=== PATIENT | male | born 1950 | race Caucasian/White ===

== ENCOUNTER 2017-04-22 08:50 | Emergency (ER) | payer OTHER ==
[~2017-04-22] VITALS: Ht 182.9 cm; Wt 179.2 kg
[2017-04-22 09:02] VITALS: BP 165/96
== END 2017-04-22 09:53 | disposition home or self-care (01) ==
LOC: ER 08:55
DX: R04.0 Epistaxis (principal); R51 Headache; Z90.49 Acquired absence of other specified parts of digestive tract

== ENCOUNTER 2017-05-02 10:07 | Emergency (ER) | payer OTHER ==
[~2017-05-02] VITALS: Ht 182.9 cm; Wt 180.5 kg
[2017-05-02 15:28] VITALS: BP 133/85
[2017-05-02 16:33] LABS: Urine Bilirubin Negative (Negative); Urine Blood Negative /uL (Negative); Urine Color Yellow (Yellow); Urine Glucose Normal (Normal); Urine Ketone Negative (Negative); Urine Mucus FEW (None Seen); Urine Nitrite Negative (Negative); Urine RBC 1 /hpf (0 - 3); Urine Squamous Epithelial Cell FEW /hpf (<5); Urine Urobilinogen Normal (Negative); Urine pH 6.5 (5.0-8.0)
[2017-05-02 16:33] LABS: Basophils # (auto) 0 uL; Basophils % (auto) 0.3 % (0.0-2.0); CONDITION Y; Eosinophils # (auto) 0.1 uL; Eosinophils % (auto) 1.2 % (0.0-7.0); Hematocrit 46.7 % (41.0-53.0); Hemoglobin 15.8 g/dL (13.5-17.5); Lymphocytes # (auto) 3.8 uL; Lymphocytes % (auto) 31.9 % (10.0-50.0); Mean Corpuscular Hemoglobin 30.1 pg (28.0-32.0); Mean Corpuscular Hgb Conc. 33.7 g/dL (32.0-36.0); Mean Corpuscular Volume 89.3 fL (80.0-100.0); Mean Platelet Volume 7.9 fL (7.4-10.4); Monocytes # (auto) 0.6 uL; Neutrophils # (auto) 7.4 uL; Neutrophils % (auto) 61.6 % (37.0-80.0); Platelet Count (auto) 289 10^3/uL (140-450); Red Cell Distribution Width 15.1 % (11.6-16.0)
[2017-05-02 16:47] LABS: Albumin 3.8 g/dL (3.4-5.0); BUN/Creatinine Ratio 18.2; Calcium 8.7 mg/dL (8.5-10.1); Potassium 4.3 mmol/L (3.5-5.1)
[2017-05-02 16:48] LABS: INR 0.95 (0.9-1.15); Prothrombin Time 10.4 sec (9.37-12.3)
[2017-05-02 16:50] LABS: Bilirubin, Total 0.4 mg/dL (0.2-1.0)
== END 2017-05-02 17:53 | disposition home or self-care (01) ==
LOC: ER 10:20
DX: R04.0 Epistaxis (principal); G43.909 Migraine, unspecified, not intractable, without status migrainosus; Z79.82 Long term (current) use of aspirin
CPT/HCPCS: 36415; 80053; 81001; 85025; 85610; 85730

== ENCOUNTER 2017-09-12 16:05 | Inpatient (IN) | payer OTHER ==
[~2017-09-12] VITALS: Ht 177.8 cm; Wt 171.0 kg
[2017-09-12] MEDS ORDERED: SODIUM CHLORIDE 0.9% 1,000 ML IV ONE (17:05)
[2017-09-12 17:46] LABS: Basophils # (auto) 0.1 uL; Basophils % (auto) 0.6 % (0.0-2.0); Eosinophils # (auto) 0.1 uL; Eosinophils % (auto) 0.7 % (0.0-7.0); Hematocrit 45.7 % (41.0-53.0); Hemoglobin 14.7 g/dL (13.5-17.5); Lymphocytes # (auto) 2.1 uL; Lymphocytes % (auto) 23.1 % (10.0-50.0); Mean Corpuscular Hgb Conc. 32.3 g/dL (32.0-36.0); Mean Corpuscular Volume 83.6 fL (80.0-100.0); Monocytes # (auto) 0.7 uL; Neutrophils # (auto) 6.1 uL; Neutrophils % (auto) 67.6 % (37.0-80.0); Nucleated Red Blood Cells % 0.7 %; Platelet Count (auto) 258 10^3/uL (140-450); Red Blood Cells 5.47 10^6/uL (4.5-5.90); Red Cell Distribution Width 16.3 % (11.8-14.3)
[2017-09-12 18:04] LABS: Albumin 3.2 g/dL (3.4-5.0); Calcium 8.1 mg/dL (8.5-10.1); Magnesium 2.3 mg/dL (1.6-2.6); Potassium 4.9 mmol/L (3.5-5.1)
[2017-09-12 18:08] LABS: Bilirubin, Total 0.3 mg/dL (0.2-1.0); Total Protein 7.4 g/dL (6.4-8.2)
[2017-09-12] MEDS ORDERED: FUROSEMIDE 40 MG/4 ML VIAL IV ONE (19:30)
[2017-09-12 22:33] LABS: Urine Bacteria NONE SEEN /hpf (None Seen); Urine Blood Negative /uL (Negative); Urine Mucus FEW (None Seen); Urine Specific Gravity 1.008 (1.001-1.035); Urine WBC 1 /hpf (0 - 3)
[2017-09-13] MEDS ORDERED: ACETAMINOPHEN 325 MG TAB PO PRN (00:15)
[2017-09-13] MEDS ORDERED: ONDANSETRON HCL 4 MG/2 ML VIAL IV PRN (00:15)
[2017-09-13] MEDS ORDERED: MORPHINE SULFATE 4 MG/ML SYR/VIAL IV PRN (00:15)
[2017-09-13] MEDS ORDERED: DOCUSATE SOD 100 MG CAP PO PRN (00:15)
[2017-09-13] MEDS ORDERED: TEMAZEPAM 15 MG CAP PO PRN (00:15)
[2017-09-13] MEDS ORDERED: NITROGLYCERIN 0.4 MG SL TAB SL PRN (00:15)
[2017-09-13] MEDS ORDERED: ENOXAPARIN SOD 100 MG/1 ML SYRINGE SC ONE (00:15)
[2017-09-13] MEDS ORDERED: IOHEXOL 350 MG/ML 100ML IJ ONE (00:18)
[2017-09-13 01:31] VITALS: BP 112/54
[2017-09-13] MEDS ORDERED: FUROSEMIDE 20 MG TAB PO SCH (06:00)
[2017-09-13 08:50] VITALS: BP 102/45
[2017-09-13] MEDS: FAMOTIDINE 20 MG TAB PO SCH ×2 (09:30→21:59)
[2017-09-13] MEDS: ENOXAPARIN SOD 40 MG/0.4 ML SYRINGE SC SCH (09:31)
[2017-09-13] MEDS: HYDROcodone-ACET 5/325MG TAB PO PRN (09:31)
[2017-09-13] MEDS: ASPirin 81 mg TAB PO SCH (09:31)
[2017-09-13] MEDS: ALBUTEROL SULF 2.5 MG/0.5ML(0.5%) NEB SOLN NEB PRN ×2 (10:12→19:26)
[2017-09-13 13:00] VITALS: BP 101/51
[2017-09-13] MEDS ORDERED: TRAZ50TA2 PO (15:10)
[2017-09-13] MEDS ORDERED: ZOLP10TA PO (15:10)
[2017-09-13 17:00] VITALS: BP 144/68
[2017-09-13] MEDS: FUROSEMIDE 40 MG/4 ML VIAL IV SCH (18:06)
[2017-09-13] MEDS: traZODone HCL 50 MG TAB PO SCH (21:59)
[2017-09-13 22:00] VITALS: BP 162/88
[2017-09-14] VITALS (93 sets, daily range): BP systolic 96–153; BP diastolic 49–86
[2017-09-14] MEDS ORDERED: ETOMIDATE (2MG/ML) 20ML VIAL IV ONE ×2 (00:46→01:45)
[2017-09-14] MEDS ORDERED: SUCCINYLCHOLINE CHLORIDE 20 MG/ML 10ML VIAL IV ONE ×2 (00:46→01:45)
[2017-09-14] MEDS ORDERED: MIDAZOLAM DRIP 100 mg/100mL NS 100 ML IV ONE (00:47)
[2017-09-14] MEDS ORDERED: PROPOFOL 100 ML IV ONE (01:20)
[2017-09-14] MEDS: MIDAZOLAM DRIP 100 mg/100mL NS 100 ML IV SCH ×3 (01:43→20:37)
[2017-09-14] MEDS: FUROSEMIDE 40 MG/4 ML VIAL IV SCH ×2 (07:04→18:17)
[2017-09-14 07:27] LABS: Basophils # (auto) 0 uL; Eosinophils # (auto) 0 uL; Eosinophils % (auto) 0.1 % (0.0-7.0); Hemoglobin 14.3 g/dL (13.5-17.5); Monocytes # (auto) 0.8 uL
[2017-09-14 07:30] LABS: Basophils % (auto) 0.2 % (0.0-2.0); Lymphocytes # (auto) 1.2 uL; Lymphocytes % (auto) 13.5 % (10.0-50.0); Mean Corpuscular Hemoglobin 26.7 pg (28.0-32.0); Mean Corpuscular Hgb Conc. 31.8 g/dL (32.0-36.0); Monocytes % (auto) 8.6 % (0.0-12.0); Neutrophils % (auto) 77.6 % (37.0-80.0); Nucleated Red Blood Cells % 0.4 %; Platelet Count (auto) 213 10^3/uL (140-450); Red Blood Cells 5.35 10^6/uL (4.5-5.90); Red Cell Distribution Width 16.5 % (11.8-14.3)
[2017-09-14 07:42] LABS: Calcium 8.1 mg/dL (8.5-10.1); Magnesium 2.4 mg/dL (1.6-2.6); Potassium 4.4 mmol/L (3.5-5.1)
[2017-09-14 07:45] LABS: Bilirubin, Total 0.8 mg/dL (0.2-1.0); Total Protein 6.9 g/dL (6.4-8.2)
[2017-09-14] MEDS: FAMOTIDINE 20 MG TAB PO SCH ×2 (09:52→21:51)
[2017-09-14] MEDS: ENOXAPARIN SOD 40 MG/0.4 ML SYRINGE SC SCH (09:53)
[2017-09-14] MEDS: ASPirin 81 mg TAB PO SCH (09:53)
[2017-09-14] MEDS: ALBUTEROL SULF 2.5 MG/0.5ML(0.5%) NEB SOLN NEB PRN (19:13)
[2017-09-14] MEDS: traZODone HCL 50 MG TAB PO SCH (21:51)
[2017-09-15] VITALS (91 sets, daily range): BP systolic 85–147; BP diastolic 40–120
[2017-09-15] MEDS: fentaNYL Drip 2500mCg/250mlNS 250 ML IV SCH (02:17)
[2017-09-15] MEDS ORDERED: fentaNYL Drip 2500mCg/250mlNS 250 ML IV ONE (02:17)
[2017-09-15 04:02] LABS: Basophils # (auto) 0 uL; Basophils % (auto) 0.5 % (0.0-2.0); Eosinophils # (auto) 0.1 uL; Hemoglobin 14.6 g/dL (13.5-17.5); Monocytes # (auto) 0.7 uL; Monocytes % (auto) 7.1 % (0.0-12.0); Neutrophils # (auto) 6.8 uL; Nucleated Red Blood Cells % 0.2 %; Red Cell Distribution Width 16.5 % (11.8-14.3); White Blood Cell 9.3 10^3/uL (4.4-10.8)
[2017-09-15 04:04] LABS: Eosinophils % (auto) 0.7 % (0.0-7.0); Hematocrit 45.6 % (41.0-53.0); Lymphocytes # (auto) 1.8 uL; Lymphocytes % (auto) 18.9 % (10.0-50.0); Mean Corpuscular Hemoglobin 26.5 pg (28.0-32.0); Mean Corpuscular Hgb Conc. 32.1 g/dL (32.0-36.0); Mean Corpuscular Volume 82.5 fL (80.0-100.0); Neutrophils % (auto) 72.8 % (37.0-80.0); Platelet Count (auto) 214 10^3/uL (140-450); Red Blood Cells 5.53 10^6/uL (4.5-5.90)
[2017-09-15 04:19] LABS: Potassium 3.7 mmol/L (3.5-5.1)
[2017-09-15 04:24] LABS: BUN/Creatinine Ratio 28.4; Calcium 7.9 mg/dL (8.5-10.1)
[2017-09-15] MEDS: FUROSEMIDE 40 MG/4 ML VIAL IV SCH ×2 (06:00→17:10)
[2017-09-15] MEDS: FAMOTIDINE 20 MG TAB PO SCH ×2 (09:16→21:36)
[2017-09-15] MEDS: ENOXAPARIN SOD 40 MG/0.4 ML SYRINGE SC SCH (09:16)
[2017-09-15] MEDS: MIDAZOLAM DRIP 100 mg/100mL NS 100 ML IV SCH (09:17)
[2017-09-15] MEDS: ARMODAFINIL 150 MG TAB PO SCH (09:17)
[2017-09-15] MEDS: ASPirin 81 mg TAB PO SCH (09:17)
[2017-09-15] MEDS: NOREPINEPHRINE 8 MG/250ML KIT 250 ML IV SCH (10:30)
[2017-09-15 11:03] LABS: INR 1.14 (0.9-1.15); Prothrombin Time 12.4 sec (9.37-12.3)
[2017-09-15] MEDS ORDERED: cefTRIAXone 1GM/10ml IVPUSH 10 ML IV ONE (11:15)
[2017-09-15] MEDS ORDERED: LIDOCAINE 1% HCL (LOCAL ANESTH.) INJ 20ML MDV ID ONE (14:15)
[2017-09-15] MEDS: SODIUM CHLOR 0.9% PF (SALINE LOCK) 10ML VIAL IV SCH (21:37)
[2017-09-15] MEDS: ALBUTEROL SULF 2.5 MG/0.5ML(0.5%) NEB SOLN NEB SCH (22:04)
[2017-09-15] MEDS: IPRATROPIUM BROM 0.5 MG/2.5ML INH SOL NEB SCH (22:04)
[2017-09-16] VITALS (100 sets, daily range): BP systolic 84–143; BP diastolic 45–98
[2017-09-16] MEDS: IPRATROPIUM BROM 0.5 MG/2.5ML INH SOL NEB SCH ×6 (02:28→23:24)
[2017-09-16] MEDS: ALBUTEROL SULF 2.5 MG/0.5ML(0.5%) NEB SOLN NEB SCH ×6 (02:28→23:24)
[2017-09-16 03:53] LABS: Eosinophils # (auto) 0.2 uL; Hemoglobin 15.1 g/dL (13.5-17.5); Neutrophils # (auto) 7.8 uL
[2017-09-16 03:57] LABS: Basophils # (auto) 0.2 uL; Basophils % (auto) 2.2 % (0.0-2.0); Eosinophils % (auto) 1.7 % (0.0-7.0); Hematocrit 47.5 % (41.0-53.0); Lymphocytes # (auto) 2.1 uL; Lymphocytes % (auto) 19.3 % (10.0-50.0); Mean Corpuscular Hemoglobin 26.6 pg (28.0-32.0); Mean Corpuscular Hgb Conc. 31.9 g/dL (32.0-36.0); Mean Corpuscular Volume 83.4 fL (80.0-100.0); Monocytes # (auto) 0.7 uL; Monocytes % (auto) 6.5 % (0.0-12.0); Neutrophils % (auto) 70.3 % (37.0-80.0); Nucleated Red Blood Cells % 0.1 %; Platelet Count (auto) 187 10^3/uL (140-450); Red Blood Cells 5.69 10^6/uL (4.5-5.90); Red Cell Distribution Width 16.5 % (11.8-14.3); White Blood Cell 11.1 10^3/uL (4.4-10.8)
[2017-09-16 04:10] LABS: Calcium 8.1 mg/dL (8.5-10.1); Magnesium 2.6 mg/dL (1.6-2.6); Potassium 3.8 mmol/L (3.5-5.1)
[2017-09-16] MEDS: FUROSEMIDE 40 MG/4 ML VIAL IV SCH ×2 (05:42→18:00)
[2017-09-16] MEDS: MIDAZOLAM DRIP 100 mg/100mL NS 100 ML IV SCH ×3 (05:43→13:59)
[2017-09-16] MEDS: fentaNYL Drip 2500mCg/250mlNS 250 ML IV SCH ×3 (05:43→23:33)
[2017-09-16] MEDS: ARMODAFINIL 150 MG TAB PO SCH (09:00)
[2017-09-16] MEDS ORDERED: cefTRIAXone 1GM/10ml IVPUSH 10 ML IV SCH (09:00)
[2017-09-16] MEDS: SODIUM CHLOR 0.9% PF (SALINE LOCK) 10ML VIAL IV SCH ×2 (09:59→21:28)
[2017-09-16] MEDS: ASPirin 81 mg TAB PO SCH (09:59)
[2017-09-16] MEDS: ENOXAPARIN SOD 40 MG/0.4 ML SYRINGE SC SCH (10:00)
[2017-09-16] MEDS: NOREPINEPHRINE 8 MG/250ML KIT 250 ML IV SCH ×2 (10:00→23:00)
[2017-09-16] MEDS: FAMOTIDINE 20 MG TAB PO SCH (10:00)
[2017-09-16] MEDS: LEVOFLOXACIN 750MG 150 ML IV SCH (12:54)
[2017-09-16] MEDS: PANTOPRAZOLE 40 MG/10 ML VIAL IV SCH (13:15)
[2017-09-16] MEDS ORDERED: ENOXAPARIN SOD 120 MG/0.8 ML SYRINGE SC ONE (13:15)
[2017-09-16] MEDS ORDERED: IOHEXOL 350 MG/ML 100ML IJ ONE (13:25)
[2017-09-16] MEDS: PIPERACILLIN-TAZO 4.5GM 50 ML IV SCH ×2 (15:00→23:00)
[2017-09-16] MEDS ORDERED: LIDOCAINE 1% HCL (LOCAL ANESTH.) INJ 20ML MDV ONE (17:54)
[2017-09-16] MEDS ORDERED: PROPOFOL 100 ML IV ONE (17:54)
[2017-09-16] MEDS ORDERED: ENOXAPARIN SOD 100 MG/1 ML SYRINGE SC SCH (22:00)
[2017-09-16] MEDS: METOPROLOL TARTRATE 25 MG TAB PO SCH (22:00)
[2017-09-16] MEDS: ATORVASTATIN 20 MG TAB PO SCH (22:27)
[2017-09-16] MEDS: ENOXAPARIN SOD 150 MG/1 ML SYRINGE SC SCH (22:31)
[2017-09-17] VITALS (77 sets, daily range): BP systolic 89–151; BP diastolic 51–94
[2017-09-17] MEDS: ALBUTEROL SULF 2.5 MG/0.5ML(0.5%) NEB SOLN NEB SCH ×6 (02:03→22:30)
[2017-09-17] MEDS: IPRATROPIUM BROM 0.5 MG/2.5ML INH SOL NEB SCH ×6 (02:03→22:30)
[2017-09-17 03:51] LABS: Basophils # (auto) 0.1 uL; Eosinophils # (auto) 0.3 uL; Hemoglobin 14.9 g/dL (13.5-17.5); Lymphocytes # (auto) 2.2 uL; Monocytes # (auto) 0.6 uL; Nucleated Red Blood Cells % 0.1 %; Red Cell Distribution Width 16.8 % (11.8-14.3)
[2017-09-17 03:55] LABS: Eosinophils % (auto) 2.9 % (0.0-7.0); Hematocrit 46.4 % (41.0-53.0); Lymphocytes % (auto) 22.2 % (10.0-50.0); Mean Corpuscular Hemoglobin 26.5 pg (28.0-32.0); Mean Corpuscular Hgb Conc. 32.2 g/dL (32.0-36.0); Mean Corpuscular Volume 82.5 fL (80.0-100.0); Monocytes % (auto) 5.8 % (0.0-12.0); Neutrophils # (auto) 6.8 uL; Neutrophils % (auto) 68.1 % (37.0-80.0); Platelet Count (auto) 218 10^3/uL (140-450); Red Blood Cells 5.62 10^6/uL (4.5-5.90); White Blood Cell 10.1 10^3/uL (4.4-10.8)
[2017-09-17 04:23] LABS: BUN/Creatinine Ratio 30.9; Calcium 8.1 mg/dL (8.5-10.1); Magnesium 2.6 mg/dL (1.6-2.6)
[2017-09-17] MEDS: FUROSEMIDE 40 MG/4 ML VIAL IV SCH ×2 (05:39→18:11)
[2017-09-17] MEDS: PIPERACILLIN-TAZO 4.5GM 50 ML IV SCH ×3 (06:36→23:13)
[2017-09-17] MEDS: ARMODAFINIL 150 MG TAB PO SCH (08:14)
[2017-09-17] MEDS: METOPROLOL TARTRATE 25 MG TAB PO SCH ×2 (10:00→21:30)
[2017-09-17] MEDS: MIDAZOLAM DRIP 100 mg/100mL NS 100 ML IV SCH ×2 (10:00→17:11)
[2017-09-17] MEDS: PANTOPRAZOLE 40 MG/10 ML VIAL IV SCH (10:10)
[2017-09-17] MEDS: SODIUM CHLOR 0.9% PF (SALINE LOCK) 10ML VIAL IV SCH ×2 (10:10→21:30)
[2017-09-17] MEDS: ASPirin 81 mg TAB PO SCH (10:10)
[2017-09-17] MEDS: LEVOFLOXACIN 750MG 150 ML IV SCH (10:10)
[2017-09-17] MEDS: ENOXAPARIN SOD 150 MG/1 ML SYRINGE SC SCH ×2 (10:10→21:30)
[2017-09-17] MEDS: fentaNYL Drip 2500mCg/250mlNS 250 ML IV SCH (17:10)
[2017-09-17] MEDS: ATORVASTATIN 20 MG TAB PO SCH (21:30)
[2017-09-18] VITALS (56 sets, daily range): BP systolic 97–128; BP diastolic 53–83
[2017-09-18] MEDS: MIDAZOLAM DRIP 100 mg/100mL NS 100 ML IV SCH (00:26)
[2017-09-18] MEDS: ALBUTEROL SULF 2.5 MG/0.5ML(0.5%) NEB SOLN NEB SCH ×6 (02:33→22:24)
[2017-09-18] MEDS: IPRATROPIUM BROM 0.5 MG/2.5ML INH SOL NEB SCH ×6 (02:33→22:24)
[2017-09-18 04:25] LABS: Basophils # (auto) 0.1 uL; Eosinophils # (auto) 0.3 uL
[2017-09-18 04:28] LABS: Basophils % (auto) 0.6 % (0.0-2.0); Eosinophils % (auto) 3.2 % (0.0-7.0); Hematocrit 46.5 % (41.0-53.0); Lymphocytes % (auto) 24.3 % (10.0-50.0); Mean Corpuscular Hemoglobin 26.7 pg (28.0-32.0); Mean Corpuscular Hgb Conc. 32.3 g/dL (32.0-36.0); Mean Corpuscular Volume 82.5 fL (80.0-100.0); Monocytes # (auto) 0.6 uL; Monocytes % (auto) 6.6 % (0.0-12.0); Neutrophils # (auto) 5.5 uL; Neutrophils % (auto) 65.3 % (37.0-80.0); Nucleated Red Blood Cells % 0.1 %; Platelet Count (auto) 207 10^3/uL (140-450); Red Blood Cells 5.64 10^6/uL (4.5-5.90); Red Cell Distribution Width 16.9 % (11.8-14.3); White Blood Cell 8.4 10^3/uL (4.4-10.8)
[2017-09-18 04:37] LABS: Calcium 8.6 mg/dL (8.5-10.1); Magnesium 2.8 mg/dL (1.6-2.6); Potassium 3.5 mmol/L (3.5-5.1)
[2017-09-18 04:40] LABS: BUN/Creatinine Ratio 32.3
[2017-09-18] MEDS: FUROSEMIDE 40 MG/4 ML VIAL IV SCH ×2 (05:45→18:00)
[2017-09-18] MEDS: PIPERACILLIN-TAZO 4.5GM 50 ML IV SCH ×3 (07:12→23:49)
[2017-09-18] MEDS: fentaNYL Drip 2500mCg/250mlNS 250 ML IV SCH (07:36)
[2017-09-18] MEDS: ARMODAFINIL 150 MG TAB PO SCH (09:10)
[2017-09-18] MEDS: LEVOFLOXACIN 750MG 150 ML IV SCH (10:00)
[2017-09-18] MEDS: ASPirin 81 mg TAB PO SCH (10:00)
[2017-09-18] MEDS: ENOXAPARIN SOD 150 MG/1 ML SYRINGE SC SCH ×2 (10:00→22:14)
[2017-09-18] MEDS: METOPROLOL TARTRATE 25 MG TAB PO SCH ×2 (10:00→22:13)
[2017-09-18] MEDS: PANTOPRAZOLE 40 MG/10 ML VIAL IV SCH (10:00)
[2017-09-18] MEDS: SODIUM CHLOR 0.9% PF (SALINE LOCK) 10ML VIAL IV SCH ×2 (10:09→22:14)
[2017-09-18] MEDS: NOREPINEPHRINE 8 MG/250ML KIT 250 ML IV SCH (10:10)
[2017-09-18] MEDS: ATORVASTATIN 20 MG TAB PO SCH (22:13)
[2017-09-19] VITALS (54 sets, daily range): BP systolic 85–135; BP diastolic 47–94
[2017-09-19] MEDS: MIDAZOLAM DRIP 100 mg/100mL NS 100 ML IV SCH (01:43)
[2017-09-19] MEDS: IPRATROPIUM BROM 0.5 MG/2.5ML INH SOL NEB SCH ×6 (02:34→22:10)
[2017-09-19] MEDS: ALBUTEROL SULF 2.5 MG/0.5ML(0.5%) NEB SOLN NEB SCH ×6 (02:34→22:10)
[2017-09-19 03:47] LABS: Basophils # (auto) 0 uL; Eosinophils # (auto) 0.2 uL; Hematocrit 45.8 % (41.0-53.0); Monocytes # (auto) 0.6 uL
[2017-09-19 03:49] LABS: Basophils % (auto) 0.4 % (0.0-2.0); Hemoglobin 14.8 g/dL (13.5-17.5); Lymphocytes % (auto) 23.1 % (10.0-50.0); Mean Corpuscular Hemoglobin 26.7 pg (28.0-32.0); Mean Corpuscular Hgb Conc. 32.3 g/dL (32.0-36.0); Mean Corpuscular Volume 82.5 fL (80.0-100.0); Monocytes % (auto) 7.2 % (0.0-12.0); Neutrophils # (auto) 5.9 uL; Neutrophils % (auto) 67.3 % (37.0-80.0); Platelet Count (auto) 220 10^3/uL (140-450); Red Blood Cells 5.55 10^6/uL (4.5-5.90); Red Cell Distribution Width 17.1 % (11.8-14.3); White Blood Cell 8.7 10^3/uL (4.4-10.8)
[2017-09-19 03:58] LABS: Magnesium 2.7 mg/dL (1.6-2.6); Potassium 3.7 mmol/L (3.5-5.1)
[2017-09-19 04:06] LABS: BUN/Creatinine Ratio 30.3
[2017-09-19] MEDS: FUROSEMIDE 40 MG/4 ML VIAL IV SCH ×2 (06:05→18:11)
[2017-09-19] MEDS: PIPERACILLIN-TAZO 4.5GM 50 ML IV SCH ×3 (06:37→22:44)
[2017-09-19] MEDS: NOREPINEPHRINE 8 MG/250ML KIT 250 ML IV SCH (10:30)
[2017-09-19] MEDS: PANTOPRAZOLE 40 MG/10 ML VIAL IV SCH (10:46)
[2017-09-19] MEDS: ASPirin 81 mg TAB PO SCH (10:46)
[2017-09-19] MEDS: LEVOFLOXACIN 750MG 150 ML IV SCH (10:47)
[2017-09-19] MEDS: SODIUM CHLOR 0.9% PF (SALINE LOCK) 10ML VIAL IV SCH ×2 (10:47→21:53)
[2017-09-19] MEDS: ENOXAPARIN SOD 150 MG/1 ML SYRINGE SC SCH ×2 (10:48→21:52)
[2017-09-19] MEDS: MIDAZOLAM DRIP 50 mg/50mL 50 ML IV SCH (11:15)
[2017-09-19] MEDS: ARMODAFINIL 150 MG TAB PO SCH (11:19)
[2017-09-19] MEDS: METOPROLOL TARTRATE 25 MG TAB PO SCH ×2 (11:20→21:53)
[2017-09-19] MEDS ORDERED: Fibersource Hn 1 Liter GT SCH (11:45)
[2017-09-19] MEDS: ATORVASTATIN 20 MG TAB PO SCH (21:53)
[2017-09-19] MEDS: PRO-STAT 64 30ML GT SCH (21:53)
[2017-09-20] VITALS (43 sets, daily range): BP systolic 87–139; BP diastolic 47–80
[2017-09-20] MEDS: HYDROcodone-ACET 5/325MG TAB PO PRN (00:51)
[2017-09-20] MEDS: fentaNYL Drip 2500mCg/250mlNS 250 ML IV SCH ×2 (02:17→08:00)
[2017-09-20] MEDS: ALBUTEROL SULF 2.5 MG/0.5ML(0.5%) NEB SOLN NEB SCH ×6 (02:48→21:49)
[2017-09-20] MEDS: IPRATROPIUM BROM 0.5 MG/2.5ML INH SOL NEB SCH ×6 (02:48→21:49)
[2017-09-20 05:19] LABS: Basophils # (auto) 0 uL; Lymphocytes # (auto) 1.8 uL; Mean Corpuscular Volume 82.9 fL (80.0-100.0); Neutrophils # (auto) 5.2 uL; Neutrophils % (auto) 66.2 % (37.0-80.0); White Blood Cell 7.9 10^3/uL (4.4-10.8)
[2017-09-20 05:22] LABS: Basophils % (auto) 0.5 % (0.0-2.0); Eosinophils # (auto) 0.3 uL; Eosinophils % (auto) 3.2 % (0.0-7.0); Hemoglobin 15.4 g/dL (13.5-17.5); Lymphocytes % (auto) 23.1 % (10.0-50.0); Mean Corpuscular Hemoglobin 26.6 pg (28.0-32.0); Mean Corpuscular Hgb Conc. 32.1 g/dL (32.0-36.0); Monocytes # (auto) 0.5 uL; Nucleated Red Blood Cells % 0.1 %; Platelet Count (auto) 219 10^3/uL (140-450); Red Blood Cells 5.79 10^6/uL (4.5-5.90)
[2017-09-20] MEDS: FUROSEMIDE 40 MG/4 ML VIAL IV SCH ×2 (05:32→19:00)
[2017-09-20 05:48] LABS: Potassium 3.5 mmol/L (3.5-5.1)
[2017-09-20 05:55] LABS: BUN/Creatinine Ratio 30.2; Calcium 8.7 mg/dL (8.5-10.1); Magnesium 2.6 mg/dL (1.6-2.6)
[2017-09-20] MEDS: PIPERACILLIN-TAZO 4.5GM 50 ML IV SCH ×3 (06:40→23:15)
[2017-09-20] MEDS ORDERED: POTASSIUM CHL 20MEQ/100ML 100 ML IV ONE (09:15)
[2017-09-20] MEDS ORDERED: POTASSIUM CHL 20MEQ/50ML 50 ML IV ONE (09:30)
[2017-09-20] MEDS: ENOXAPARIN SOD 150 MG/1 ML SYRINGE SC SCH ×2 (09:40→22:09)
[2017-09-20] MEDS: ARMODAFINIL 150 MG TAB PO SCH (09:40)
[2017-09-20] MEDS: PRO-STAT 64 30ML GT SCH ×2 (09:40→22:00)
[2017-09-20] MEDS: LEVOFLOXACIN 750MG 150 ML IV SCH (09:40)
[2017-09-20] MEDS: SODIUM CHLOR 0.9% PF (SALINE LOCK) 10ML VIAL IV SCH ×2 (09:40→22:00)
[2017-09-20] MEDS: METOPROLOL TARTRATE 25 MG TAB PO SCH ×2 (09:40→22:00)
[2017-09-20] MEDS: ASPirin 81 mg TAB PO SCH (09:40)
[2017-09-20] MEDS: PANTOPRAZOLE 40 MG/10 ML VIAL IV SCH (09:40)
[2017-09-20] MEDS: NOREPINEPHRINE 8 MG/250ML KIT 250 ML IV SCH (10:30)
[2017-09-20] MEDS: MIDAZOLAM DRIP 50 mg/50mL 50 ML IV SCH ×3 (10:44→22:08)
[2017-09-20] MEDS: ATORVASTATIN 20 MG TAB PO SCH (22:09)
[2017-09-21] VITALS (42 sets, daily range): BP systolic 92–155; BP diastolic 49–99
[2017-09-21] MEDS: IPRATROPIUM BROM 0.5 MG/2.5ML INH SOL NEB SCH ×4 (02:20→14:09)
[2017-09-21] MEDS: ALBUTEROL SULF 2.5 MG/0.5ML(0.5%) NEB SOLN NEB SCH ×4 (02:20→14:09)
[2017-09-21 04:38] LABS: Eosinophils # (auto) 0.4 uL; Monocytes # (auto) 0.8 uL; Nucleated Red Blood Cells % 0.1 %
[2017-09-21 04:41] LABS: Basophils # (auto) 0.1 uL; Basophils % (auto) 0.9 % (0.0-2.0); Eosinophils % (auto) 4.2 % (0.0-7.0); Hematocrit 49.2 % (41.0-53.0); Hemoglobin 15.3 g/dL (13.5-17.5); Lymphocytes # (auto) 2.4 uL; Lymphocytes % (auto) 25.1 % (10.0-50.0); Mean Corpuscular Hemoglobin 26.5 pg (28.0-32.0); Mean Corpuscular Hgb Conc. 31.2 g/dL (32.0-36.0); Mean Corpuscular Volume 84.9 fL (80.0-100.0); Monocytes % (auto) 8.2 % (0.0-12.0); Neutrophils # (auto) 5.8 uL; Neutrophils % (auto) 61.6 % (37.0-80.0); Platelet Count (auto) 231 10^3/uL (140-450); Red Blood Cells 5.79 10^6/uL (4.5-5.90); Red Cell Distribution Width 17.3 % (11.8-14.3); White Blood Cell 9.4 10^3/uL (4.4-10.8)
[2017-09-21 05:09] LABS: BUN/Creatinine Ratio 34.5; Calcium 9.2 mg/dL (8.5-10.1); Magnesium 2.8 mg/dL (1.6-2.6); Potassium 3.8 mmol/L (3.5-5.1)
[2017-09-21] MEDS: FUROSEMIDE 40 MG/4 ML VIAL IV SCH (06:00)
[2017-09-21] MEDS: PIPERACILLIN-TAZO 4.5GM 50 ML IV SCH ×2 (07:07→15:25)
[2017-09-21] MEDS: ARMODAFINIL 150 MG TAB PO SCH ×2 (08:00→15:24)
[2017-09-21] MEDS: METOPROLOL TARTRATE 25 MG TAB PO SCH (10:00)
[2017-09-21] MEDS: PRO-STAT 64 30ML GT SCH (10:00)
[2017-09-21] MEDS: ENOXAPARIN SOD 150 MG/1 ML SYRINGE SC SCH (10:30)
[2017-09-21] MEDS: NOREPINEPHRINE 8 MG/250ML KIT 250 ML IV SCH (10:30)
[2017-09-21] MEDS: SODIUM CHLOR 0.9% PF (SALINE LOCK) 10ML VIAL IV SCH (10:30)
[2017-09-21] MEDS: LEVOFLOXACIN 750MG 150 ML IV SCH (10:30)
[2017-09-21] MEDS: PANTOPRAZOLE 40 MG/10 ML VIAL IV SCH (10:30)
[2017-09-21] MEDS ORDERED: HALOPERIDOL 5 MG TAB PO ONE (12:30)
[2017-09-21] MEDS: ASPirin 81 mg TAB PO SCH (15:24)
[2017-09-21] MEDS ORDERED: HALOPERIDOL 5 MG TAB PO SCH (22:00)
== END 2017-09-21 16:20 | disposition short-term general hospital (02) | DRG 207 ==
LOC: EDBD 16:05 → ER 16:09 → TELE 16:10 → TELE-WESTW 09-13 08:48 → DOU IN ICU 09-14 02:34 → ICU WEST 09-15 00:55
PROVIDERS: ADMIT Nurse Practitioner; ATTEND Family Medicine
PROC: 5A1955Z Respiratory Ventilation, Greater than 96 Consecutive Hours (ICD-10-PCS; principal; 2017-09-14)
PROC: 0BH17EZ Insertion of Endotracheal Airway into Trachea, Via Natural or Artificial Opening (ICD-10-PCS; 2017-09-14)
PROC: 05H733Z Insertion of Infusion Device into Right Axillary Vein, Percutaneous Approach (ICD-10-PCS; 2017-09-15)
DX: J96.21 Acute and chronic respiratory failure with hypoxia (principal); I21.4 Non-ST elevation (NSTEMI) myocardial infarction; I50.43 Acute on chronic combined systolic (congestive) and diastolic (congestive) heart failure; I27.81 Cor pulmonale (chronic); J15.4 Pneumonia due to other streptococci; E66.2 Morbid (severe) obesity with alveolar hypoventilation; Z68.43 Body mass index [BMI] 50.0-59.9, adult; T82.524A Displacement of infusion catheter, initial encounter; J96.22 Acute and chronic respiratory failure with hypercapnia; F32.9 Major depressive disorder, single episode, unspecified; J40 Bronchitis, not specified as acute or chronic; J44.9 Chronic obstructive pulmonary disease, unspecified; G47.00 Insomnia, unspecified; K59.00 Constipation, unspecified; Z71.3 Dietary counseling and surveillance; Z90.49 Acquired absence of other specified parts of digestive tract; Z90.89 Acquired absence of other organs; Y71.2 Prosthetic and other implants, materials and accessory cardiovascular devices associated with adverse incidents; Y92.89 Other specified places as the place of occurrence of the external cause
CPT/HCPCS: 36415; 36569; 36600; 51702; 71045; 80048; 80053; 81001; 82805; 82962; 83735; 83880; 84484; 85025; 85379; 85610; 87070; 87077; 87081; 87186; 87205; 93005; 93306; 94002; 94003; 94640; 96361; 96372; 96374; 97163; C9113; J0330; J1956; J2001; J2250; J2543; J2704; J3010; J3480